=== PATIENT | female | born 1995 | race Caucasian/White ===

== ENCOUNTER 2017-10-24 18:05 | Observation (INO) | payer OTHER ==
[2017-10-24 18:09] VITALS: BMI 20.2
[2017-10-24] MEDS ORDERED: Sodium Chloride 0.9% 1,000 ML IV STA (18:12)
[2017-10-24] MEDS ORDERED: Morphine 4 mg/ml ISec IVP STA (18:13)
--- NOTE | 2017-10-24 18:15 | ED PDOC ---
"Arrival/HPI - General Time Seen by Provider: 10/24/17 18:07 Historian: Patient - History of Present Illness Narrative History of Present Illness (Text): 10/24/17 18:08 A 21 year old female, with no significant past medical history, NKDA, presents to the emergency department complaining of abdominal pain in the periumbilical region radiating to RLQ for 1 hour TIMBER SIZER. Patient is also experiencing associated vomiting. She describes pain severity as sharp and to be 7/10. Patient reports menstrual period ended 1 week ago. Patient denies any fever, chills, vaginal bleeding/discharge, any urinary symptoms, pelvic pain, or any other complaints at this time. Also, patient denies any abdominal surgical history. No PMD Time/Duration: 1 hour Symptom Onset: Sudden Symptom Course: Unchanged Past Medical History - Provider Review Nursing Documentation Reviewed: Yes Family/Social History - Physician Review Nursing Documentation Reviewed: Yes Family/Social History: No Known Family HX Allergies/Home Meds Allergies/Adverse Reactions: Allergies No Known Allergies Allergy (Verified 10/24/17 18:09) Review of Systems - Physician Review All systems were reviewed & negative as marked: Yes - Review of Systems Constitutional: absent: Fevers, Night Sweats Gastrointestinal: Abdominal Pain (periumbilical region radiating to RLQ), Vomiting Genitourinary Female: absent: Dysuria, Frequency, Hematuria, Urine Output Changes, Vaginal Bleeding, Vaginal Discharge Physical Exam Vital Signs Reviewed: Yes Vital Signs Temp Pulse Resp BP Pulse Ox 10/24/17 21:30 81 18 114/82 99 10/24/17 18:06 98.8 F 84 18 111/74 97 Temperature: Afebrile Blood Pressure: Normal Pulse: Regular Respiratory Rate: Normal Appearance: Positive for: Well-Appearing Pain Distress: None Mental Status: Positive for: Alert and Oriented X 3 - Systems Exam Head: Present: Atraumatic, Normocephalic Respiratory/Chest: Present: Clear to Auscultation, Good Air Exchange. No: Respiratory Distress, Accessory Muscle Use Cardiovascular: Present: Regular Rate and Rhythm, Normal S1, S2. No: Murmurs Abdomen: Present: Tenderness (RLQ and periumbilical) Back: No: CVA Tenderness Upper Extremity: Present: Normal Inspection. No: Cyanosis, Edema Lower Extremity: Present: Normal Inspection. No: Edema Neurological: Present: GCS=15, CN II-XII Intact, Speech Normal Skin: Present: Warm, Dry, Normal Color. No: Rashes Psychiatric: Present: Alert, Oriented x 3, Normal Insight, Normal Concentration Medical Decision Making ED Course and Treatment: 10/24/17 18:11 Impression: 21 year old female with periumbilical region radiating to RLQ. Physical exam shows tenderness to RLQ and periumbilical region; no CVA tenderness. Plan: -- Abd/Pelvis CT -- Labs -- Pepcid -- Reglan -- Morphine -- IV Fluids -- Urinalysis -- POC Urine -- Reassess and disposition Progress Notes: 10/24/17 19:55 -Urine hcg is negative -Labs are non-significant -Urinalysis show +UTI -CT abdomen and pelvis show: Acute appendicitis, no complications such as perforation. Reactive free fluid is present in the pelvis. -IV zosyn ordered -Surgical attending Dr. Jes Lopez and vice president sales paged. 10/24/17 20:23 -Chest xray ordered -I spoke to the surgical attending biofuels plant operations engineer, in the OR now, stated that they will come down to evaluate the patient. -Still pending Dr. Lopez for call back 10/24/17 20:45 -Chest xray show no active disease -vice president sales Dr. Horn is here, spoke to him that the surgeon Dr. Lopez is unreachable by me, stated that he will talk to Dr. Lopez himself. -Case endorsed to the surgical team Dr. Lopez and Dr. Horn (resident) for continue care. -Dr. Wayne, awared of the case and he will put in the admission order. 10/24/17 21:09 -vice president sales and Dr. Lopez, will take the patient to the OR now. - Lab Interpretations Lab Results: 10/24/17 18:24 10/24/17 18:24 Lab Results 10/24/17 18:24: PT 13.9 H, INR 1.21 H, APTT 28.8 10/24/17 18:24: WBC 7.0, RBC 4.92, Hgb 13.1, Hct 38.5, MCV 78.3 L, MCH 26.6, MCHC 34.0, RDW 13.8, Plt Count 262, MPV 12.0 H, Gran % 72.4 H, Lymph % (Auto) 22.2, [place] % (Auto) 5.0, Eos % (Auto) 0.3 L, Baso % (Auto) 0.1, Gran # 5.10, Lymph # (Auto) 1.6, [place] # (Auto) 0.4, Eos # (Auto) 0.0, Baso # (Auto) 0.01 10/24/17 18:24: Sodium 141, Potassium 4.0, Chloride 105, Carbon Dioxide 24, Anion Gap 17, BUN 9, Creatinine 0.5 L, Est GFR ( Amer) > 60, Est GFR (Non -Af Amer) > 60, Random Glucose 109, Calcium 9.4, Magnesium 1.8, Total Bilirubin 0.3, AST 50 H, ALT 68 H, Alkaline Phosphatase 46, Total Creatine Kinase 47, Total Protein 7.6, Albumin 4.4, Globulin 3.2, Albumin/Globulin Ratio 1.4 10/24/17 18:24: Urine Color Yellow, Urine Appearance Clear, Urine pH 6.0, Ur Specific [place] 1.025, Urine Protein Negative, Urine Glucose (UA) Negative, Urine Ketones Negative, Urine Blood Moderate H, Urine Nitrate Negative, Urine Bilirubin Negative, Urine Urobilinogen 0.2, Ur Leukocyte Esterase Trace H, Urine RBC 1 - 3, Urine WBC 0 - 2, Ur Epithelial Cells 0 - 2, Urine Bacteria None - RAD Interpretation Radiology Orders: 10/24/17 18:12 ABD & PELVIS IV CONTRAST ONLY [CT] Stat 10/24/17 20:04 CHEST PORTABLE [RAD] Stat Lung bases: Unremarkable. No mass. No consolidation. ABDOMEN: Liver: Unremarkable. No mass. Gallbladder and bile ducts: Unremarkable. No calcified stones. No ductal dilation. No significant wall thickening. Pancreas: Unremarkable. No mass. No ductal dilation. Spleen: Unremarkable. No splenomegaly. Adrenals: Unremarkable. No mass. Kidneys and ureters: Unremarkable. No solid mass. No hydronephrosis. Stomach and bowel: Unremarkable. No obstruction. No mucosal thickening. PELVIS: BRIEN MCBRIDE | Preliminary Radiology Report COCOA POWDER MIXER OPERATOR (QA) DISCREPANCY? If there is a discrepancy between the preliminary and final interpretation, please notify [facility] via [email or web address]. If you do not have access to our QA portal, call our QA team at [phone] CONFIDENTIALITY STATEMENT This report is intended only for the use of the referring physician, and only in accordance with law, If you received this in error, call [phone] Page 2 of 2 Appendix: The appendix is thickened and inflamed and appears fluid filled with periappendiceal fat stranding consistent with acute appendicitis. No organized pockets of fluid no significant free fluid. The appendix measures approximately 10.5 cm. Bladder: Unremarkable. No mass. Reproductive: The uterus, cervix, and the endometrium, otherwise appear unremarkable. ABDOMEN and PELVIS: Intraperitoneal space: Small free fluid is present in the pelvis. Bilateral ovarian follicles are present. Bones/joints: The spine, sacroiliac joints, and hip joints are normal. No acute fracture. No dislocation. Soft tissues: Unremarkable. Vasculature: Unremarkable. No abdominal aortic aneurysm. Lymph nodes: Unremarkable. No enlarged lymph nodes. IMPRESSION: Acute appendicitis, no complications such as perforation. Reactive free fluid is present in the pelvis. Thank you for allowing us to participate in the care of your patient. Dictated and Authenticated by: Gerry Magdaleno MD 10/24/2017 7:52 PM Eastern Time ([place] & [place]) Chest xray: no active disease Pinion And Wheel Truer: Radiologist - Medication Orders Current Medication Orders: Discontinued Medications Famotidine (Pepcid) 20 mg IVP STAT STA Stop: 10/24/17 18:13 Last Admin: 10/24/17 18:41 Dose: 20 mg IVP Administration Document 10/24/17 18:41 [email or web address] (Rec: 10/24/17 18:[email or web address] [facility] [place]- [id number]) Charges for Administration # of IVP Administrations 1 Hydromorphone HCl (Dilaudid) 0.5 mg IVP Q15M PRN PRN Reason: Pain, moderate (4-7) Stop: 10/25/17 02:02 Last Admin: 10/25/17 00:24 Dose: 0.5 mg Sodium Chloride (Sodium Chloride 0.9%) 1,000 mls @ 999 mls/hr IV .Q1H1M STA Stop: 10/24/17 19:12 Last Admin: 10/24/17 18:41 Dose: 999 mls/hr eMAR Start Stop Document 10/24/17 18:41 [email or web address] (Rec: 10/24/17 18:41 [email or web address] [facility] [place] [id number]) Intravenous Solution Start Date 10/24/17 Start Time 18:41 End Date 10/24/17 Piperacillin Sod/Tazobactam Sod (Zosyn 3.375 In Ns 100ml) 100 mls @ 200 mls/hr IVPB STAT STA PRN Reason: Protocol Stop: 10/24/17 20:26 Last Admin: 10/24/17 20:17 Dose: 200 mls/hr eMAR Start Stop Document 10/24/17 20:17 AD (Rec: 10/24/17 20:17 AD [id number]) Intravenous Solution Start Date 10/24/17 Start Time 20:17 Piperacillin Sod/Tazobactam Sod (Zosyn 4.5 Gm In Ns 100ml) 4.5 gm in 100 mls @ 200 mls/hr IVPB Q6H JEANIE PRN Reason: Protocol Last Admin: 10/25/17 10:31 Dose: 200 mls/hr eMAR Start Stop Document 10/25/17 10:31 JONATHON (Rec: 10/25/17 10:31 JONATHON [id number]) Intravenous Solution Start Date 10/25/17 Start Time 10:31 End Date 10/25/17 End time 11:01 Total Infusion Time 30 Lactated Ringer's (Lactated Ringer's) 1,000 mls @ 100 mls/hr IV .Q10H JEANIE Last Admin: 10/24/17 21:45 Dose: 100 mls/hr eMAR Start Stop Document 10/24/17 21:45 AD (Rec: 10/24/17 21:45 AD [id number]) Intravenous Solution Start Date 10/24/17 Start Time 21:45 Lactated Ringer's (Lactated Ringer's) 1,000 mls @ 75 mls/hr IV .[id number] JEANIE Stop: 10/25/17 02:16 Ketorolac Tromethamine (Toradol) 30 mg IVP Q6H PRN PRN Reason: Pain, severe (8-10) Metoclopramide HCl (Reglan) 10 mg IVP STAT STA Stop: 10/24/17 18:13 Last Admin: 10/24/17 18:41 Dose: 10 mg IVP Administration Document 10/24/17 18:41 [facility] (Rec: 10/24/17 18:[address] [id number]) Charges for Administration # of IVP Administrations 1 Morphine Sulfate (Morphine) 4 mg IVP STAT STA Stop: 10/24/17 18:14 Last Admin: 10/24/17 18:42 Dose: 4 mg MAR Pain Assessment Document 10/24/17 18:42 [facility] (Rec: 10/24/17 18:[address] [id number]) Pain Reassessment Is this a pain reassessment? No Sleep Is patient sleeping during reassessment? No Presence of Pain Presence of Pain Yes Pain Scale Used Pain Scale Used Numeric Location Pain Location Body Site Abdomen Description Description Constant Intensity of Pain at present 9 Pain Behavior Facial Grimacing Aggravating Factors Changing Position Alleviating Factors/Management Medication Techniques Alleviating Factors Medication IVP Administration Document 10/24/17 18:42 [facility] (Rec: 10/24/17 18:[address] [id number]) Charges for Administration # of IVP Administrations 1 Ondansetron HCl (Zofran Inj) 4 mg IVP Q6H PENDING SALE TO [facility] Last Admin: 10/25/17 03:10 Dose: Not Given Non-Admin Reason: Patient Asleep Ondansetron HCl (Zofran Inj) 4 mg IVP Q6H PRN PRN Reason: Nausea/Vomiting Pantoprazole Sodium (Protonix Inj) 40 mg IVP DAILY PENDING SALE TO [facility] Last Admin: 10/25/17 10:31 Dose: 40 mg IVP Administration Document 10/25/17 10:31 JONATHON (Rec: 10/25/17 10:31 JONATHON [id number]) Charges for Administration # of IVP Administrations 1 Pneumococcal Polyvalent Vaccine (Pneumovax 23 Vaccine) 0.5 ml IM .ONCE ONE Stop: 10/25/17 01:31 Tramadol HCl (Ultram) 50 mg PO Q6H PRN PRN Reason: Pain, moderate (4-7) - PA / POLITICAL REPORTER / Resident Statement MD/DO has reviewed & agrees with the documentation as recorded. - Scribe Statement The provider has reviewed the documentation as recorded by the Evelia Das Provider Scribe Attestation: All medical record entries made by the Evelia were at my direction and personally dictated by me. I have reviewed the chart and agree that the record accurately reflects my personal performance of the history, physical exam, medical decision making, and the department course for this patient. I have also personally directed, reviewed, and agree with the discharge instructions and disposition. Disposition/Present on Arrival - Present on Arrival Any Indicators Present on Arrival: No History of DVT/PE: No History of Uncontrolled Diabetes: No Urinary Catheter: No History of Decub. Ulcer: No - Disposition Have Diagnosis and Disposition been Completed?: Yes Diagnosis: Appendicitis Disposition: HOSPITALIZED Disposition Time: 20:01 Patient Plan: Admission Condition: STABLE"
[2017-10-24 18:46] LABS: BASO # 0.01 K/mm3 (0.0-2.0); BASO % 0.1 % (0.0-3.0); EOS % 0.3 % (1.5-5.0); GRAN # 5.1 (1.4-6.5); GRAN % 72.4 % (50.0-68.0); HEMOGLOBIN 13.1 g/dL (12.0-16.0); LYMPH # 1.6 (1.2-3.4); LYMPH % 22.2 % (22.0-35.0); MEAN CELL VOLUME 78.3 fl (80.0-105.0); MEAN CORPUSCULAR HEMOGLOBIN 26.6 pg (25.0-35.0); MONO # 0.4 (0.1-0.6); RBC 4.92 10^6/uL (3.5-6.1); RED CELL DISTRIBUTION WIDTH 13.8 % (11.5-14.5)
[2017-10-24 18:47] LABS: URINE APPEARANCE CLEAR (CLEAR); URINE BILIRUBIN NEGATIVE (NEGATIVE); URINE BLOOD MODERATE (NEGATIVE); URINE COLOR YELLOW (YELLOW); URINE GLUCOSE (UA) NEGATIVE (NEGATIVE); URINE LEUKOCYTE ESTERASE TRACE Leu/uL (NEGATIVE); URINE PROTEIN NEGATIVE mg/dL (<30 mg/dL); URINE UROBILINOGEN 0.2 E.U./dL (<1 E.U./dL)
[2017-10-24 18:52] LABS: URINE EPITHELIAL CELLS 0 - 2 /hpf (0-5); URINE WBC 0 - 2 /hpf (0-6)
[2017-10-24 18:55] LABS: INR 1.21 (0.93-1.08); PARTIAL THROMBOPLASTIN TIME 28.8 Seconds (25.1-36.5); PROTHROMBIN TIME 13.9 SECONDS (9.4-12.5)
[2017-10-24 18:59] LABS: ALB/GLOB RATIO 1.4 (1.1-1.8); ALBUMIN 4.4 g/dL (3.0-4.8); ALT/SGPT 68 U/L (7-56); AST/SGOT 50 U/L (14-36); BLOOD UREA NITROGEN 9 mg/dL (7-21); CALCIUM 9.4 mg/dL (8.4-10.5); GFR AFRICAN-AMERICAN > 60; GFR NON-AFRICAN AMERICAN > 60
[2017-10-24] MEDS ORDERED: Iohexol 350 MG/100 ML VIAL ONE (19:04)
[2017-10-24] MEDS ORDERED: Piperacillin/Tazobact 3.375 gm 100 ML IVPB STA (19:57)
[2017-10-24] MEDS ORDERED: Morphine 2 mg/ml ISec IVP PRN (21:05)
--- NOTE | 2017-10-24 21:08 | CP.PCM.HP ---
<Dakota Almaguer - Last Filed: 10/24/17 21:56> History of Present Illness - History of Present Illness History of Present Illness: General Surgery H&P Note for Dr. Lopez cc: Abdominal pain, nausea/vomiting 21F with PMH of H. pylori infection treated with quadruple therapy x 2 presents to [facility] for complaint of abdominal pain and nausea/vomiting. Patient was seen and evaluated in the ED. Patient states that her pain began around 12:00. She states that pain began suddenly in periumbilical and epigastric region. Patient admits to having associated nausea/vomiting with 3 episodes of NBNB emesis. She has experienced abdominal pain in the past but this time it is different. She rates pain as moderate. She describes pain as constant and sharp that began periumbilical and radiated to RLQ. During the same time frame, she had epigastric pain as well. Patient unable to tolerate oral intake. She states nothing alleviates her pain. She denies recent illness or sick contacts. Denies fever/chills, chest pain, SOB, paalpitations, diarrhea, constipation, incontinence, urinary symptoms. CT abd/pelvis performed in the ED demonstrates acute appendicitis. PMH: H. pylori infection treated with quadruple therapy x 2 Meds: Quadruple therapy for H.pylori (unsure of names) Allergy: NKDA PSH: Denies FH: denies Social: Denies tobacco/EtOH/illicit drug use, lives with parents Present on Admission - Present on Admission Any Indicators Present on Admission: No History of DVT/PE: No History of Uncontrolled Diabetes: No Urinary Catheter: No Decubitus Ulcer Present: No History Surgical Site Infection Following: None Review of Systems - Review of Systems All systems: reviewed and no additional remarkable complaints except (as per HPI ) Past Patient History - Infectious Disease Hx of Infectious Diseases: None - Past Social History Smoking Status: Never Smoked - PSYCHIATRIC Hx Substance Use: No - SURGICAL HISTORY Hx Surgeries: No - ANESTHESIA Hx Anesthesia: No Meds Allergies/Adverse Reactions: Allergies Allergy/AdvReac Type Severity Reaction Status Date / Time No Known Allergies Allergy Verified 10/24/17 18:09 Physical Exam - Constitutional Appears: Other (uncomfortable) - Head Exam Head Exam: ATRAUMATIC, NORMOCEPHALIC - Eye Exam Eye Exam: EOMI, Normal appearance Pupil Exam: PERRL - ENT Exam ENT Exam: Mucous Membranes Moist - Neck Exam Neck exam: Positive for: Normal Inspection - Respiratory Exam Respiratory Exam: NORMAL BREATHING PATTERN - Cardiovascular Exam Cardiovascular Exam: REGULAR RHYTHM - GI/Abdominal Exam GI & Abdominal Exam: Normal Bowel Sounds, Soft, Tenderness (epigastric, RLQ). absent: Distended, Firm, Guarding, Rebound, Rigid Additional comments: + McBurney's point - Extremities Exam Extremities exam: Positive for: calf tenderness, normal capillary refill, pedal pulses present - Back Exam Back exam: CVA tenderness (L), CVA tenderness (R) - Neurological Exam Neurological exam: Alert, CN II-XII Intact, Oriented x3 - Psychiatric Exam Psychiatric exam: Normal Affect, Normal Mood - Skin Skin Exam: Dry, Intact, Normal Color, Warm Results - Vital Signs Recent Vital Signs: Last Vital Signs Temp 98.8 F 10/24/17 18:06 Pulse 84 10/24/17 18:06 Resp 18 10/24/17 18:06 BP 111/74 10/24/17 18:06 Pulse Ox 97 10/24/17 18:06 - Labs Result Diagrams: 10/24/17 18:24 10/24/17 18:24 Labs: Laboratory Results - last 24 hr 10/24/17 10/24/17 10/24/17 18:24 18:24 18:24 WBC 7.0 RBC 4.92 Hgb 13.1 Hct 38.5 MCV 78.3 L MCH 26.6 MCHC 34.0 RDW 13.8 Plt Count 262 MPV 12.0 H Gran % 72.4 H Lymph % (Auto) 22.2 [place] % (Auto) 5.0 Eos % (Auto) 0.3 L Baso % (Auto) 0.1 Gran # 5.10 Lymph # (Auto) 1.6 [place] # (Auto) 0.4 Eos # (Auto) 0.0 Baso # (Auto) 0.01 PT INR APTT Sodium 141 Potassium 4.0 Chloride 105 Carbon Dioxide 24 Anion Gap 17 BUN 9 Creatinine 0.5 L Est GFR ( Amer) > 60 Est GFR (Non-Af Amer) > 60 Random Glucose 109 Calcium 9.4 Magnesium 1.8 Total Bilirubin 0.3 AST 50 H ALT 68 H Alkaline Phosphatase 46 Total Creatine Kinase 47 Total Protein 7.6 Albumin 4.4 Globulin 3.2 Albumin/Globulin Ratio 1.4 Urine Color Yellow Urine Appearance Clear Urine pH 6.0 Ur Specific [place] 1.025 Urine Protein Negative Urine Glucose (UA) Negative Urine Ketones Negative Urine Blood Moderate H Urine Nitrate Negative Urine Bilirubin Negative Urine Urobilinogen 0.2 Ur Leukocyte Esterase Trace H Urine RBC 1 - 3 Urine WBC 0 - 2 Ur Epithelial Cells 0 - 2 Urine Bacteria None 10/24/17 18:24 WBC RBC Hgb Hct MCV MCH MCHC RDW Plt Count MPV Gran % Lymph % (Auto) [place] % (Auto) Eos % (Auto) Baso % (Auto) Gran # Lymph # (Auto) [place] # (Auto) Eos # (Auto) Baso # (Auto) PT 13.9 H INR 1.21 H APTT 28.8 Sodium Potassium Chloride Carbon Dioxide Anion Gap BUN Creatinine Est GFR ( Amer) Est GFR (Non-Af Amer) Random Glucose Calcium Magnesium Total Bilirubin AST ALT Alkaline Phosphatase Total Creatine Kinase Total Protein Albumin Globulin Albumin/Globulin Ratio Urine Color Urine Appearance Urine pH Ur Specific [place] Urine Protein Urine Glucose (UA) Urine Ketones Urine Blood Urine Nitrate Urine Bilirubin Urine Urobilinogen Ur Leukocyte Esterase Urine RBC Urine WBC Ur Epithelial Cells Urine Bacteria - Imaging and Cardiology CT scan - abdomen Status: Image reviewed by me, Report reviewed by me Additional comment: fluid filled appendix measuring 10.5 cm suspicious for acute appendicitis Assessment & Plan - Assessment and Plan (Free Text) Assessment: 21 F with acute appendicitis Plan: -NPO -IV Fluids -Analgesics/Anti-emetics -Zosyn -GI/DVT ppx -Plan for Laparoscopic Appendectomy in OR tonight -Discussed with Dr. John Almaguer PGY1 - Date & Time Date: 10/24/17 Time: 21:00 <Saurabh Lopez - Last Filed: 10/24/17 22:05> Results - Vital Signs Recent Vital Signs: Last Vital Signs Temp 98.8 F 10/24/17 18:06 Pulse 81 10/24/17 21:30 Resp 18 10/24/17 21:30 BP 114/82 10/24/17 21:30 Pulse Ox 99 10/24/17 21:30 - Labs Result Diagrams: 10/24/17 18:24 10/24/17 18:24 Assessment & Plan - Assessment and Plan (Free Text) Plan: I personally saw and examined the patient at bedside independent of the resident staff and agree with above assessment and plan. [address] AP findings consistent with acute appendicitis. Laparoscopic appendectomy. Risks and benefits discussed with patient nand parents at bedside. All questions answered. Consent obtained.
[2017-10-24] MEDS ORDERED: Lidocaine 1% Inj (20ml) ONE (21:19)
[2017-10-24] MEDS ORDERED: Bupivacaine 0.25% Inj(30mL) ONE (21:19)
[2017-10-24] MEDS ORDERED: Lactated Ringer's 1,000 ML IV SCH (21:30)
[2017-10-24] MEDS ORDERED: Midazolam 2 MG/2 ML VIAL ONE (21:34)
[2017-10-24] MEDS ORDERED: Propofol 10 mg/ml Inj (20 ML) ONE (21:34)
[2017-10-24] MEDS ORDERED: Rocuronium 10 mg/ml (5 ml) ONE (21:36)
[2017-10-24] MEDS ORDERED: Succinylcholine 200 mg/10 ml Inj IV ONE (21:39)
[2017-10-24] MEDS ORDERED: Neostigmine Methylsulfate 3mg/3ml Syringe IV ONE (23:34)
[2017-10-24] MEDS ORDERED: Glycopyrrolate 0.2 mg/ml (2ml vial) ONE (23:35)
--- NOTE | 2017-10-24 23:59 | PCM.SURG1 ---
Surgeon's Initial Post Op Note - Surgeon's Notes Surgeon: Dr. Lopez Radio Sales Account Executive: Rosina PGY1 Type of Anesthesia: General Endo Anesthesia Administered By: Dr. Montez Pre-Operative Diagnosis: Acute appendicitis Operative Findings: Acute appendicitis Post-Operative Diagnosis: Acute appendicitis Operation Performed: Laparoscopic Appendectomy Specimen/Specimens Removed: Appendix Estimated Blood Loss: EBL {In ML}: 5 Blood Products Given: N/A Drains Used: No Drains Post-Op Condition: Good Date of Surgery/Procedure: 10/24/17 Time of Surgery/Procedure: 23:59
[2017-10-25] MEDS: HYDROmorphone 0.5 mg/0.5 ml ISec IVP PRN ×2 (00:05→00:24)
[2017-10-25 00:15] VITALS: O2SAT 98
[2017-10-25] MEDS ORDERED: Lactated Ringer's 1,000 ML IV SCH (00:15)
[2017-10-25] MEDS ORDERED: Pneumococcal 23-Valent Vaccine IM ONE (01:30)
[2017-10-25] MEDS: Piperacill/Tazo 4.5gm in NS 4.5 GM/100 ML BAG IVPB SCH ×2 (01:42→10:31)
[2017-10-25 07:57] VITALS: BP 96/50; PULSE 70; RESP 18; TEMP 98.1
--- NOTE | 2017-10-25 08:21 | RAD ---
HISTORY: medical clearance COMPARISON: No prior. FINDINGS: LUNGS: No active pulmonary disease. PLEURA: No significant pleural effusion identified, no pneumothorax apparent. CARDIOVASCULAR: Normal. OSSEOUS STRUCTURES: No significant abnormalities. VISUALIZED UPPER ABDOMEN: Normal. OTHER FINDINGS: None. IMPRESSION: No active disease.
--- NOTE | 2017-10-25 09:55 | CT ---
PROCEDURE: CT abdomen pelvis dated 10/24/2017 HISTORY: Periumbilical and RLQ pain x 1 day COMPARISON: No prior TECHNIQUE: Contiguous helical/transaxial images of the abdomen and pelvis performed following the intravenous injection of approximately 100 cc of Omnipaque 350 contrast material. Additional 2D sagittal and coronal reformats generated. Radiation dose: Total exam DLP = 230.65 no all mGy-cm. This CT exam was performed using one or more of the following dose reduction techniques: Automated exposure control, adjustment of the mA and/or kV according to patient size, and/or use of iterative reconstruction technique. FINDINGS: LOWER THORAX: Unremarkable. LIVER: Unremarkable. . There is a tiny approximately 3.25 mm elliptical shaped low-attenuation focus left lobe liver that is too small to characterize though could represent tiny cyst or hemangioma. Followup interval could be performed to assess stability. GALLBLADDER AND BILE DUCTS: Unremarkable. PANCREAS: Unremarkable. No mass. No ductal dilatation. SPLEEN: Unremarkable. No splenomegaly. ADRENALS: Unremarkable. KIDNEYS AND URETERS: Unremarkable. No stone or hydronephrosis. BLADDER: Grossly unremarkable. REPRODUCTIVE: Unremarkable. APPENDIX: Appendix some is dilated measuring approximately 10.4 mm. Appendiceal wall is minimally thickened and exhibits mild enhancement. Findings consistent with acute appendicitis. . BOWEL: Unremarkable. No obstruction. No gross mural thickening. PERITONEUM: There is a small amount of free fluid seen in the pelvis LYMPH NODES: Unremarkable. No enlarged lymph nodes. VASCULATURE: Unremarkable. No aortic aneurysm. BONES: No fracture or destructive lesion. OTHER FINDINGS: None. IMPRESSION: Findings consistent with acute appendicitis. Small amount of free fluid within the pelvis Tiny low-attenuation focus left lobe liver too small characterize. Followup the CT scan at interval could be performed to assess stability.
--- NOTE | 2017-10-25 11:03 | CP.PCM.DIS ---
Provider - Provider Date of Admission: 10/24/17 21:09 Attending physician: Saurabh Lopez MD Primary care physician: General surgery - Dr. Saurabh Lopez Consults: None Time Spent in preparation of Discharge (in minutes): 35 Hospital Course - Lab Results Lab Results: Most Recent Lab Values WBC 7.0 10^3/ul (4.5-11.0) 10/24/17 18:24 RBC 4.92 10^6/uL (3.5-6.1) 10/24/17 18: Hgb 13.1 g/dL (12.0-16.0) 10/24/17 18: Hct 38.5 % (36.0-48.0) 10/24/17 18: MCV 78.3 fl (80.0-105.0) L 10/24/17 18: MCH 26.6 pg (25.0-35.0) 10/24/17 18: MCHC 34.0 g/dl (31.0-37.0) 10/24/17: RDW 13.8 % (11.5-14.5) 10/24/17 18: Plt Count 262 10^3/uL (120.0-450.0) 10/24/17 18: MPV 12.0 fl (7.0-11.0) H 10/24/17 18: Gran % 72.4 % (50.0-68.0) H 10/24/17 18:24 Lymph % (Auto) 22.2 % (22.0-35.0) 10/24/17 18: [place] % (Auto) 5.0 % (1.0-6.0) 10/24/17 18:24 Eos % (Auto) 0.3 % (1.5-5.0) L 10/24/17 18: Baso % (Auto) 0.1 % (0.0-3.0) 10/24/17: Gran # 5.10 (1.4-6.5) 10/24/17 18:24 Lymph # (Auto) 1.6 (1.2-3.4) 10/24/17 18: [place] # (Auto) 0.4 (0.1-0.6) 10/24/17 18:24 Eos # (Auto) 0.0 (0.0-0.7) 10/24/17 18:24 Baso # (Auto) 0.01 K/mm3 (0.0-2.0) 10/24/17 18:24 PT 13.9 SECONDS (9.4-12.5) H 10/24/17 18:24 INR 1.21 (0.93-1.08) H 10/24/17 18:24 APTT 28.8 Seconds (25.1-36.5) 10/24/17 18:24 Sodium 141 mmol/L (132-148) 10/24/17 18:24 Potassium 4.0 mmol/L (3.6-5.0) 10/24/17 18:24 Chloride 105 mmol/L (98-107) 10/24/17 18:24 Carbon Dioxide 24 mmol/L (21-33) 10/24/17 18:24 Anion Gap 17 (10-20) 10/24/17 18:24 BUN 9 mg/dL (7-21) 10/24/17 18:24 Creatinine 0.5 mg/dl (0.7-1.2) L 10/24/17 18:24 Est GFR ( Amer) > 60 10/24/17 18:24 Est GFR (Non-Af Amer) > 60 10/24/17 18:24 Random Glucose 109 mg/dL (70-110) 10/24/17 18:24 Calcium 9.4 mg/dL (8.4-10.5) 10/24/17 18:24 Magnesium 1.8 mg/dL (1.7-2.2) 10/24/17 18:24 Total Bilirubin 0.3 mg/dL (0.2-1.3) 10/24/17 18:24 AST 50 U/L (14-36) H 10/24/17 18:24 ALT 68 U/L (7-56) H 10/24/17 18:24 Alkaline Phosphatase 46 U/L (38-126) 10/24/17 18:24 Total Creatine Kinase 47 U/L (35-230) 10/24/17 18:24 Total Protein 7.6 g/dL (5.8-8.3) 10/24/17 18:24 Albumin 4.4 g/dL (3.0-4.8) 10/24/17 18:24 Globulin 3.2 gm/dL 10/24/17 18:24 Albumin/Globulin Ratio 1.4 (1.1-1.8) 10/24/17 18:24 Urine Color Yellow (YELLOW) 10/24/17 18:24 Urine Appearance Clear (CLEAR) 10/24/17 18:24 Urine pH 6.0 (4.7-8.0) 10/24/17 18:24 Ur Specific [place] 1.025 (1.005-1.035) 10/24/17 18:24 Urine Protein Negative mg/dL (<30 mg/dL) 10/24/17 18:24 Urine Glucose (UA) Negative mg/dL (NEGATIVE) 10/24/17 18:24 Urine Ketones Negative mg/dL (NEGATIVE) 10/24/17 18:24 Urine Blood Moderate (NEGATIVE) H 10/24/17 18:24 Urine Nitrate Negative (NEGATIVE) 10/24/17 18:24 Urine Bilirubin Negative (NEGATIVE) 10/24/17 18:24 Urine Urobilinogen 0.2 E.U./dL (<1 E.U./dL) 10/24/17 18:24 Ur Leukocyte Esterase Trace Devin/uL (NEGATIVE) H 10/24/17 18:24 Urine RBC 1 - 3 /hpf (0-2) 10/24/17 18:24 Urine WBC 0 - 2 /hpf (0-6) 10/24/17 18:24 Ur Epithelial Cells 0 - 2 /hpf (0-5) 10/24/17 18:24 Urine Bacteria None (NEG) 10/24/17 18:24 - Hospital Course Hospital Course: 21F w/PMH sig for H pylori infection s/p quadruple therapy admitted for abdominal pain, N & V 2/2 appendicitis. Pt taken to OR on hospital day one for laparoscopic appendectomy, no complications. Pt kept overnight for observation/ pain control. Pt voiding post operatively, tolerating diet, ambulating without problems. Patient stable, ready for discharge home with pain medication prescriptions. Pt and mother at bedside educated on post op instructions as per Dr. Lopez's specifications. Paperwork in chart. Nursing notified re: discharge paperwork, Rx and instructions. Diagnoses: appendicitis s/p laparoscopic appendectomy - Date & Time of H&P Date of H&P: 10/24/17 Time of H&P: 21:08 Discharge Exam - Head Exam Head Exam: ATRAUMATIC, NORMAL INSPECTION, NORMOCEPHALIC - Eye Exam Eye Exam: EOMI, Normal appearance - ENT Exam ENT Exam: Mucous Membranes Moist, Normal Exam - Neck Exam Neck exam: Full Rom, Normal Inspection - Respiratory Exam Respiratory Exam: Clear to PA & Lateral, NORMAL BREATHING PATTERN, UNREMARKABLE - Cardiovascular Exam Cardiovascular Exam: REGULAR RHYTHM, +S1, +S2 - GI/Abdominal Exam GI & Abdominal Exam: Normal Bowel Sounds, Tenderness (minimal, over surgical incision sites, umbilical, suprapubic and LLQ- all with glue in place, no erythema or drainage noted), Unremarkable. absent: Diminished Bowel Sounds, Distended, Firm, Guarding, Hernia - Back Exam Back exam: NORMAL INSPECTION - Neurological Exam Neurological exam: Alert, CN II-XII Intact, Oriented x3 - Psychiatric Exam Psychiatric exam: Normal Affect, Normal Mood - Skin Skin Exam: Dry, Intact, Normal Color, Warm Discharge Plan - Discharge Medications Prescriptions: Docusate Sodium [Colace] 50 mg PO BID #60 capsule Ibuprofen [Motrin Tab] 600 mg PO Q6H PRN #18 tab PRN Reason: Pain, Mild (1-3) traMADol [Ultram] 50 mg PO Q6H PRN #30 tab PRN Reason: Pain, Moderate (4-7) - Follow Up Plan Condition: STABLE Disposition: HOME/ ROUTINE Instructions: Appendicitis, Adult (DC), Appendectomy, Laparoscopic Surgery (DC) Additional Instructions: Take Ibuprofen, Tramadol, Colace as prescribed Take the Colace if you are taking the Tramadol to prevent constipation Do not operate heavy machinery or drive if you are taking Tramadol May shower in 36 hours No heavy lifting for 4-6 weeks Keep area clean and dry Follow up with Dr. Lopez as outpatient in his office within 2-[address] Lopez for any issues Please return to ED if symptoms persist or condition worsens (See Dr. Lopez's Discharge Instructions for more details) Referrals: Saurabh Lopez MD [Staff Provider] -
--- NOTE | 2017-10-25 11:27 | PCM.OP ---
Operative Report - Operative Report Date of Surgery/Procedure: 10/25/17 Time of Surgery/Procedure: 22:00 Surgeon: Saurabh Lopez MD Sidehand: Dakota Díaz DO (PGY1 resident) Anesthesia/Sedation: General endotracheal; 1% lidocaine + 0.25% Marcaine mix local anesthesia Pre-Operative Diagnosis: Acute appendicitis Post-Operative Diagnosis: Acute appendicitis Indication for Surgery: This is a 21 year old female who presented to the emergency department earlier this evening with 24 hours of periumbilical pain which migrated to his right lower quadrant and CT scan which demonstrated simple appendicitis. Risks and benefits of the operation were discussed and informed consent signed prior to operation. Operative Findings: Mildly inflamed appendix without evidence of perforation. Mesoappendix and appendiceal stump staple lines intact without leak or bleeding at the end of case Procedure/Operation Description: PROCEDURE PERFORMED: Laparoscopic Appendectomy. Omental buttress of cecal staple line. DETAILS OF PROCEDURE: The patient was given a preoperative dose of Zosyn in the ED 2 hours earlier. SCD boots were placed for DVT prophylaxis. The patient voided in pre-op immediately prior to surgery and no macdonald was placed. An orogastric tube placed in order to empty the stomach after the induction of general anesthesia. Upper body warmer placed. Hair removal performed with shaver. The abdomen was prepped and draped in sterile fashion, Timeout was performed prior to incison. In the infra-umbilical midline, a vertical incision was made and and veress needle inserted without issue. Aspiration reveal air, and saline drop test performed and normal. Insufllation attahed and abdominal opening pressures 4- 6mmhg. The abdomen was insufflated to 15 mmHg pressure with CO2. We tried inserted a 5mm port but her tissue was very tough and I did not want to insert blindly, so I swithced over to gaining access at [place] point in the LUQ with 5mm scope and optically viewing trocar, confirming intra-periotneal insertion under direct vision. All trocar sites were preanesthetized with local anesthesia as above. 2 additional working ports were placed, A 5mm port in the infraumbilical incision and a 12 mm port in suprapubic region. All trocars were placed under vision. The abdomen was generally insepected and no other pathology found. Scant fluid in pelvis. Dilated appendix without perforation noted. We began by sweeping the small intestine out of the pelvis and easily visualized the cecum, appendix and terminal ileum. A mesenteric window was created with bluntly in the mesoappendix, and 45m linear stapler vascular white load was used to ligate and divide the appendiceal pedicle. The staple line was inspected and noted to be intact without bleeding. Next a 45 mm blue load linear staple was used to divide the appendix at its base, being sure not to incorporate cecum. The specimen was placed in an Endocatch bag and removed from the 12mm trocar. The trocar reinserted and we next turned our attention to inspecting the staple line. The staple lines were carefully inspected and appeared hemostatic. Omentum was then draped over the suture line and instruments and ports removed under direct vision. The abdomen was then desufflated. 0-vycrl suture in a figure of eight fashion nwas used to close the suprapubic fascia. The skin was closed with 4-0 monocryl and dermabond. All sponge, needle and instrument counts were correct. The patient was extubated in the operating room, and taken to the recovery room in stable condition. I was present for the entirety of the operation. Estimated Blood Loss: 15 Drains: none Complications: none Specimen: Appendix with mesoappendix Discharge & Condition: taken to the recovery room in stable condition.
== END 2017-10-25 11:59 | disposition home or self-care (01) ==
LOC: ED 18:05 → ERH 21:09 → INTOOBSV 21:09 → ERH 21:38 → 3RSO 10-25 00:55
PROVIDERS: ADMIT Surgery; ATTEND Surgery
DX: K35.80 Unspecified acute appendicitis (principal)
CPT/HCPCS: 44970; 71045; 74177; 80053; 81001; 82550; 83735; 85025; 85610; 85730; 87086; 88304; 96374; 96375; 99285; C9113; G0378; J0330; J1170; J1885; J2250; J2270; J2405; J2543; J2704; J2710; J2765; J3010; J7030; J7120; Q9967